=== PATIENT | male | born 1960 | race Asian ===

== ENCOUNTER 2022-10-28 07:01 | Inpatient (IN) | payer OTHER ==
[~2022-10-28] VITALS: Ht 172.7 cm; Wt 81.6 kg
[2022-10-28] VITALS (7 sets, daily range): BP systolic 126–135; PULSE 80–102; RESP 16–18; TEMP 97.8–98.8; O2SAT 97–100
[2022-10-28 07:53] LABS: BASOPHILS # (AUTO) 0.1 K/uL (0.0-0.2); BASOPHILS % (AUTO) 0.5 % (0.0-2.0); EOSINOPHILS # (AUTO) 0.1 K/uL (0.0-0.4); EOSINOPHILS % (AUTO) 0.5 % (0.0-4.0); HEMATOCRIT 40.5 % (36-54); HEMOGLOBIN 13.2 g/dL (14.0-18.0); LYMPHOCYTES # (AUTO) 1.8 K/uL (1.0-5.5); LYMPHOCYTES % (AUTO) 10.8 % (20.5-51.5); MEAN CORPUSCULAR HEMOGLOBIN 28 pg (27-31); MEAN CORPUSCULAR HGB CONC 33 % (32-36); MEAN CORPUSCULAR VOLUME 86 fL (79.0-98.0); MONOCYTES # (AUTO) 1.7 K/uL (0.0-1.0); MONOCYTES % (AUTO) 10.2 % (1.7-9.3); PLATELET COUNT (AUTO) 302 K/uL (130-430); RED BLOOD CELL COUNT(AUTO) 4.68 MIL/uL (4.2-6.2); RED CELL DISTRIBUTION WIDTH 13.9 % (9.0-15.0); WHITE BLOOD COUNT (AUTO) 16.7 K/uL (4.8-10.8)
[2022-10-28 08:10] LABS: BILIRUBIN,URINE NEGATIVE (NEGATIVE); BLOOD, URINE 2+ (NEGATIVE); CLARITY/URINE Clear (CLEAR); COLOR,URINE YELLOW (YELLOW); GLUCOSE,URINE NEGATIVE (NEGATIVE); KETONES,URINE NEGATIVE (NEGATIVE); LEUKOCYTE ESTERASE ,URINE NEGATIVE (NEGATIVE); NITRITE, URINE NEGATIVE (NEGATIVE); UROBILINOGEN,URINE 0.2 (0.2-1.0)
[2022-10-28 08:14] LABS: ANION GAP 7 (5-15); CALCIUM 8.6 mg/dL (8.4-11.0); CARBON DIOXIDE 30 mmol/L (23-29); CHLORIDE 100 mmol/L (98-107); CREATININE 0.89 mg/dL (0.55-1.30); GFR AFRICAN AMERICAN 112 mL/min (>90); GLUCOSE 93 mg/dL (74-106); POTASSIUM 3.6 mmol/L (3.5-5.1); SODIUM SERUM 137 mmol/L (136-145); UREA NITROGEN, BLOOD 13 mg/dL (8-21)
[2022-10-28 08:15] LABS: GFR NON AFRICAN-AMERICAN 93 mL/min (>90)
[2022-10-28] MEDS ORDERED: MORPHINE 2 MG/ML INJ. SYRINGE IM ONE (08:15)
[2022-10-28 08:21] LABS: PROTEIN URINE TRACE (NEGATIVE)
[2022-10-28 08:31] LABS: ACETONE, SERUM NEGATIVE (NEGATIVE)
[2022-10-28 08:42] LABS: BACTERIA,URINE None Seen /HPF (None Seen); MUCUS,URINE 3+ /LPF (None Seen); WBC,URINE 0-3 /HPF (0-3)
[2022-10-28 08:46] LABS: ALANINE AMINOTRANSFERASE 24 U/L (12-78); ALBUMIN 3.2 g/dL (3.4-4.8); AMYLASE 83 U/L (0-100); ASPARTATE AMINOTRANSFERASE 15 U/L (10-37); LIPASE 141 U/L (73-393); TOTAL BILIRUBIN 1.1 mg/dL (0.0-1.0); TOTAL PROTEIN, SERUM 7.1 g/dL (6.4-8.3)
[2022-10-28] MEDS ORDERED: MORPHINE 2 MG/ML INJ. SYRINGE IVP ONE (09:45)
[2022-10-28] MEDS ORDERED: NACL 0.9% 1,000 ML IV ONE (09:45)
[2022-10-28] MEDS ORDERED: ONDANSETRON HCL 4 MG/2 ML VIAL IVP PRN (10:15)
[2022-10-28] MEDS ORDERED: ACETAMINOPHEN 325 MG TABLET PO PRN (10:15)
[2022-10-28] MEDS ORDERED: MUPIROCIN 2% TOPICAL OINTMENT 22 GM NS PRN (10:15)
[2022-10-28] MEDS ORDERED: LORazepam 2 MG/ML VIAL IVP PRN (10:15)
[2022-10-28] MEDS ORDERED: MORPHINE 2 MG/ML INJ. SYRINGE IVP PRN (10:15)
[2022-10-28] MEDS ORDERED: ZOLPIDEM TARTRATE 5 MG TABLET PO PRN (10:15)
[2022-10-28] MEDS ORDERED: DOCUSATE SODIUM 100 MG CAPSULE PO PRN (10:15)
[2022-10-28] MEDS ORDERED: MAGNESIUM SULFATE 50 ML IV PRN (10:15)
[2022-10-28] MEDS ORDERED: POTASSIUM (10:20)
[2022-10-28] MEDS ORDERED: ATOR40TA68 PO (10:20)
[2022-10-28] MEDS ORDERED: FLUO20CA42 PO (10:20)
[2022-10-28] MEDS ORDERED: AMIT25TA9 PO (10:20)
[2022-10-28] MEDS ORDERED: AMLO10TA88 PO (10:20)
[2022-10-28] MEDS ORDERED: CYCLOBENZAPRINE (10:20)
[2022-10-28] MEDS ORDERED: TEMA15CA PO (10:20)
[2022-10-28] MEDS ORDERED: GABA-529 PO (10:20)
[2022-10-28] MEDS: NACL 0.9% 1,000 ML IV SCH ×2 (11:48→21:49)
[2022-10-28] MEDS: MORPHINE 2 MG/ML INJ. SYRINGE IVP PRN ×3 (14:37→22:58)
[2022-10-28] MEDS: metroNIDAZOLE 500 mg/NS 100 ML IV SCH ×2 (14:38→21:54)
[2022-10-28] MEDS ORDERED: HYDROCORTISONE 10 MG TABLET (CORTEF) PO ONE (15:30)
[2022-10-28] MEDS: HYDROCORTISONE 10 MG TABLET (CORTEF) PO SCH (18:22)
[2022-10-28] MEDS: GABAPENTIN 100 MG CAPSULE PO SCH (21:47)
[2022-10-28] MEDS: AMITRIPTYLINE HCL 25 MG TABLET (ELAVIL) PO SCH (21:47)
[2022-10-28] MEDS: HEPARIN SODIUM,PORCINE 5,000 UNITS/ML VIAL SUBCUT SCH (21:48)
[2022-10-29] VITALS (9 sets, daily range): BP systolic 122–143; PULSE 68–87; RESP 16–20; TEMP 98–98.3; O2SAT 95–98
[2022-10-29] MEDS: metroNIDAZOLE 500 mg/NS 100 ML IV SCH ×3 (05:35→22:15)
[2022-10-29] MEDS: NACL 0.9% 1,000 ML IV SCH ×2 (06:15→20:37)
[2022-10-29 06:40] LABS: BASOPHILS % (AUTO) 0.1 % (0.0-2.0); EOSINOPHILS # (AUTO) 0.1 K/uL (0.0-0.4); EOSINOPHILS % (AUTO) 0.5 % (0.0-4.0); HEMOGLOBIN 11.7 g/dL (14.0-18.0); LYMPHOCYTES # (AUTO) 1.8 K/uL (1.0-5.5); MEAN CORPUSCULAR HEMOGLOBIN 28 pg (27-31); MEAN CORPUSCULAR HGB CONC 33 % (32-36); MEAN CORPUSCULAR VOLUME 85 fL (79.0-98.0); MONOCYTES # (AUTO) 1.1 K/uL (0.0-1.0); NEUTROPHILS # (AUTO) 8.3 K/uL (1.8-7.7); NEUTROPHILS % (AUTO) 73.4 % (40.0-70.0); PLATELET COUNT (AUTO) 259 K/uL (130-430); RED BLOOD CELL COUNT(AUTO) 4.13 MIL/uL (4.2-6.2); RED CELL DISTRIBUTION WIDTH 13.7 % (9.0-15.0); WHITE BLOOD COUNT (AUTO) 11.3 K/uL (4.8-10.8)
[2022-10-29] MEDS: MORPHINE 2 MG/ML INJ. SYRINGE IVP PRN ×2 (06:55→21:02)
[2022-10-29 07:04] LABS: CALCIUM 8.2 mg/dL (8.4-11.0); CREATININE 0.68 mg/dL (0.55-1.30); POTASSIUM 3.1 mmol/L (3.5-5.1)
[2022-10-29] MEDS: HYDROCORTISONE 10 MG TABLET (CORTEF) PO SCH ×2 (09:35→18:37)
[2022-10-29] MEDS: amLODIPine BESYLATE 10 MG TABLET PO SCH (09:35)
[2022-10-29] MEDS: FLUoxetine HCL 20 MG CAPSULE (PROzac) PO SCH (09:36)
[2022-10-29] MEDS: ATORVASTATIN 20 MG TABLET PO SCH (09:36)
[2022-10-29] MEDS: HEPARIN SODIUM,PORCINE 5,000 UNITS/ML VIAL SUBCUT SCH ×2 (09:51→20:25)
[2022-10-29] MEDS: POTASSIUM CHLORIDE 20 MEQ TAB.PRT.SR PO PRN (18:58)
[2022-10-29] MEDS: GABAPENTIN 100 MG CAPSULE PO SCH (20:23)
[2022-10-29] MEDS: AMITRIPTYLINE HCL 25 MG TABLET (ELAVIL) PO SCH (20:24)
[2022-10-30] VITALS: BP_SYST 133; PULSE 81; RESP 18; TEMP 98.6; O2SAT 96
[2022-10-30] MEDS: NACL 0.9% 1,000 ML IV SCH ×2 (02:15→12:15)
[2022-10-30] MEDS: metroNIDAZOLE 500 mg/NS 100 ML IV SCH (06:23)
[2022-10-30 06:24] LABS: BASOPHILS % (AUTO) 0.3 % (0.0-2.0); EOSINOPHILS # (AUTO) 0.1 K/uL (0.0-0.4); EOSINOPHILS % (AUTO) 0.7 % (0.0-4.0); HEMATOCRIT 35.3 % (36-54); HEMOGLOBIN 11.9 g/dL (14.0-18.0); LYMPHOCYTES # (AUTO) 2.4 K/uL (1.0-5.5); MEAN CORPUSCULAR HEMOGLOBIN 29 pg (27-31); MEAN CORPUSCULAR HGB CONC 34 % (32-36); MEAN CORPUSCULAR VOLUME 85 fL (79.0-98.0); MONOCYTES # (AUTO) 1.1 K/uL (0.0-1.0); MONOCYTES % (AUTO) 10.9 % (1.7-9.3); NEUTROPHILS # (AUTO) 6.2 K/uL (1.8-7.7); NEUTROPHILS % (AUTO) 63.1 % (40.0-70.0); PLATELET COUNT (AUTO) 288 K/uL (130-430); RED BLOOD CELL COUNT(AUTO) 4.15 MIL/uL (4.2-6.2); RED CELL DISTRIBUTION WIDTH 13.2 % (9.0-15.0); WHITE BLOOD COUNT (AUTO) 9.8 K/uL (4.8-10.8)
[2022-10-30 06:32] LABS: CALCIUM 8.2 mg/dL (8.4-11.0); CREATININE 0.66 mg/dL (0.55-1.30)
[2022-10-30 06:37] LABS: POTASSIUM 2.9 mmol/L (3.5-5.1)
[2022-10-30] MEDS: POTASSIUM CHLORIDE 20 MEQ TAB.PRT.SR PO PRN (06:52)
[2022-10-30 07:30] VITALS: O2SAT 99
[2022-10-30 08:07] VITALS: BP_SYST 145; PULSE 85; RESP 18; TEMP 98.1
[2022-10-30] MEDS: HYDROCORTISONE 10 MG TABLET (CORTEF) PO SCH (08:36)
[2022-10-30] MEDS: ATORVASTATIN 20 MG TABLET PO SCH (08:37)
[2022-10-30] MEDS: FLUoxetine HCL 20 MG CAPSULE (PROzac) PO SCH (08:37)
[2022-10-30] MEDS: amLODIPine BESYLATE 10 MG TABLET PO SCH (08:38)
[2022-10-30] MEDS: MORPHINE 2 MG/ML INJ. SYRINGE IVP PRN ×3 (08:39→09:08)
[2022-10-30] MEDS: HEPARIN SODIUM,PORCINE 5,000 UNITS/ML VIAL SUBCUT SCH ×2 (08:42→09:00)
[2022-10-30] MEDS ORDERED: METR-154 PO (08:49)
[2022-10-30] MEDS ORDERED: CIPR-260 PO (08:49)
[2022-10-30] MEDS ORDERED: HYDR-3917 PO (08:50)
[2022-10-30] MEDS ORDERED: HYDROcodone/ACETAMIN 5-325 MG TAB (NORCO/ VICODIN) PO ONE (09:15)
[2022-10-30 11:45] VITALS: BP_SYST 145; PULSE 85; RESP 18; TEMP 98.1; O2SAT 99
[2022-10-30 12:00] VITALS: BP_SYST 140; PULSE 82; RESP 19; TEMP 98.2; O2SAT 98
== END 2022-10-30 12:30 | disposition home or self-care (01) | DRG 872 ==
LOC: SED 07:01 → SMU 10:02
PROVIDERS: ADMIT General Practice; ATTEND General Practice
DX: A41.9 Sepsis, unspecified organism (principal); A09 Infectious gastroenteritis and colitis, unspecified; E27.1 Primary adrenocortical insufficiency; Z88.0 Allergy status to penicillin; Z79.899 Other long term (current) drug therapy; Z85.46 Personal history of malignant neoplasm of prostate; I10 Essential (primary) hypertension; D12.6 Benign neoplasm of colon, unspecified; E78.5 Hyperlipidemia, unspecified
CPT/HCPCS: 36415; 70450-TC; 76376; 80048; 80053; 81000; 82009; 82150; 83037; 83605; 83690; 83735; 85025; 87230-TC; 94660; 94760; 96365; 96372; 96375; 99285; J1644; J1956; J2270; J3490; J7030